=== PATIENT | female | born 1970 | race American Indian/Alaskan Native ===

== ENCOUNTER 2018-12-02 11:42 | Emergency (ER) | payer MEDICAID ==
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
== END 2018-12-02 12:48 | disposition home or self-care (01) ==
LOC: ED 11:42
CPT/HCPCS: 99282